=== PATIENT | male | born 1950 | race Two or more races ===

== ENCOUNTER → 2024-02-04 | Outpatient (CLI) | payer OTHER, MEDICAID, SELFPAY ==
[2024-02-04 09:06] LABS: Collection Type, Urine Clean Catch
[2024-02-04 09:26] LABS: Basophils % (Auto) 0 % (0-2.5); Eosinophils # (Auto) 0.1 Thou/mm3 (0.0-0.5); Eosinophils % (Auto) 1 % (0-10); Hematocrit 45.6 % (41.0-53.0); Hemoglobin 15.1 g/dL (13.5-16.0); Immature Granulocytes % (Auto) 0 % (0-0); Immature Granulocytes Auto 0.02 Thou/mm3 (0.00-0.00); Lymphocytes # (Auto) 2.6 Thou/mm3 (1.0-4.8); Lymphocytes % (Auto) 45 % (10-50); Mean Corpuscular HGB Conc 33.1 g/dl (31.0-37.0); Mean Corpuscular Hemoglobin 31.7 pg (25.0-35.0); Mean Corpuscular Volume 96 fL (80-100); Monocytes # (Auto) 0.5 Thou/mm3 (0.0-0.8); Monocytes % (Auto) 8 % (0-12); Neutrophils # (Auto) 2.7 Thou/mm3 (1.8-7.7); Neutrophils % (Auto) 45 % (37-80); Nucleated Red Blood Cell % 0 /100 WBC (0); Platelet Count 145 Thou/mm3 (140-440); Red Blood Count 4.76 Miln/mm3 (4.50-5.90); White Blood Count 5.9 Thou/mm3 (3.8-10.6)
[2024-02-04 09:36] LABS: Bilirubin,Urine Negative (Negative); Blood,Urine 1+ (Negative); Clarity,Urine Clear (Clear/Hazy); Color,Urine Yellow (Lt Yel-Yel); Glucose, Urine Negative (Negative); Hyaline Casts,Urine 1 /hpf (0-1); Ketones,Urine Negative (Negative); Leukocyte Esterase,Urine Negative (Negative); Nitrite,Urine Negative (Negative); PH,Urine 5.5 (5.0-7.0); Protein,Urine Negative (Neg - Trace); RBC,Urine 2 /hpf (0-3); Specific Gravity,Urine 1.018 (1.001-1.035); Squamous Epithelial Cell,Urine < 1 /hpf (0-5); Urobilinogen,Urine Negative mg/dL (0.0-1.0); WBC,Urine 1 /hpf (0-5)
[2024-02-04 09:45] LABS: Alanine Aminotransferase 25 U/L (10-49); Albumin, Serum 4.9 gm/dL (3.4-4.8); Albumin/Globulin Ratio 1.7 (1.2-2.2); Alkaline Phosphatase 74 U/L (46-116); Anion Gap 9 (7-16); Aspartate Amino Transferase 30 U/L (0-34); BUN/Creatinine Ratio 13 Ratio (12-20); Bilirubin,Total 1.6 mg/dL (0.3-1.2); Blood Urea Nitrogen 20 mg/dL (9-23); Calcium 9.8 mg/dL (8.3-10.6); Calcium (Corrected) 9.8 mg/dL (8.5-10.1); Carbon Dioxide 30.6 mMol/L (20.0-31.0); Cardiac Risk Estimate 2.6 RATIO (4.0-6.7); Chloride 100 mMol/L (98-107); Cholesterol 168 mg/dL (132-200); Creatinine (Component) 1.5 mg/dL (0.6-1.3); Free T4 (Free Thyroxine) 1.15 ng/dL (0.89-1.76); Globulin 2.9 gm/dL (2.3-3.5); Glucose 103 mg/dL (74-106); HDL Cholesterol 64 mg/dL (40-60); LDL Cholesterol,Calculated 80 mg/dL (0-130); Osmolality,Calculated 282 (275-295); Potassium 3.7 mMol/L (3.4-5.1); Sodium 140 mMol/L (136-145); Thyroid Stimulating Hormone 7.91 uIU/mL (0.55-4.78); Total Protein 7.8 gm/dL (5.7-8.2); Triglycerides 118 mg/dL (30-150); eGFR 48 See Note
== END | disposition home or self-care (01) ==
LOC: COPL 08:22
PROVIDERS: PCP Family Medicine; Referring Provider Family Medicine; Visit Provider Family Medicine
DX: D64.9 Anemia, unspecified (principal); E78.2 Mixed hyperlipidemia; I10 Essential (primary) hypertension; R94.6 Abnormal results of thyroid function studies; R31.21 Asymptomatic microscopic hematuria; I48.20 Chronic atrial fibrillation, unspecified
CPT/HCPCS: 36415; 80053; 80061; 81001; 84439; 84443; 85025

== ENCOUNTER → 2024-02-15 | Outpatient (CLI) | payer OTHER, MEDICAID, SELFPAY ==
--- NOTE | 2024-02-15 12:00 | XR_ITS ---
Examination: MRI brain without intravenous contrast. Date and time of exam: February 15, 2024 1226 hours INDICATIONS: CVA history 2021, right-sided weakness and difficulty speaking 2 years, brain hemorrhage 11/06/2023 Technique: Multiple axial and sagittal images of the brain obtained. Siemens high-resolution 1.5 Adriana short bore scanners utilized. Sagittal sections, T1-weighted, TR 500, TE 14, are performed. Axial sections proton-density and T2-weighted have been obtained. Inversion recovery axial images, TR 9, 260, TE 111, TI 2500. Diffusion weighted images, axial sections, TR 4800, TE 128, B value 1000 Axial sections, ADC map, TR 4800, TE 128 Findings: Enlargement of the sella turcica is not present. The optic chiasm and infundibular are not remarkable. Prepontine and interpeduncular cisterns are not enlarged. There is no localized enlargement of the medulla or oniel. Fourth ventricle and cerebellar tonsils appear normal in position. Encephalomalacia left posterior parietal occipital lobe No subacute area of hemorrhage density is seen. Mass in the cerebellopontine angle region is not evident. Globes symmetrical. Orbital musculature including medial lateral rectus muscles do not exhibit abnormality. Diffusion-weighted images demonstrate no focus of restricted diffusion. Increased white matter signal prominent Mass effect upon the ventricular system is not identified. Impression: Negative for acute hemorrhage mass effect or midline shift No acute infarct Old infarct as above
--- NOTE | 2024-02-15 13:09 | XR_ITS ---
Examination: CT brain head without contrast. 2-D sagittal coronal reconstructions Date and time of exam:February 15, 2024 1316 hours Comparison 11/06/2023 INDICATIONS: CVA history 2021 right sided body weakness difficulty speaking 2 years, large hemorrhage 4.1 x 2.5 cm posterior left parietal lobe occipital lobe on CT brain scan 11/06/2023 CTDI: vol (mGy):51.2 DLP: (mGycm):1157 Technique: Multiple CT axial sections of the brain have been obtained, 5 mm slice thickness. Contrast has not been administered. 2-D sagittal, coronal reconstructions have been obtained Low dose protocols were performed. One or more of the following dose reduction techniques were used; automated exposure control, adjustment of the mA and/or KV according to patient size, use of iterative reconstruction technique. Findings: No significant ventricular enlargement. There is subtle hyperdensity in the infarct in the left posterior parietal occipital lobe on the current study, although less intense compared to the November 06, 2023 exam No interval significant mass effect No midline shift IMPRESSION: Decrease in but residual hemorrhage at the site of the hemorrhagic infarct left posterior parietal left occipital noted on the November 06, 2023 exam
== END | disposition home or self-care (01) ==
PROVIDERS: PCP Family Medicine; Referring Provider Psychiatry & Neurology Neurology; Visit Provider Psychiatry & Neurology Neurology
DX: I62.9 Nontraumatic intracranial hemorrhage, unspecified (principal); Z86.73 Personal history of transient ischemic attack (TIA), and cerebral infarction without residual deficits
CPT/HCPCS: 70450; 70551

== ENCOUNTER → 2024-06-16 | Outpatient (CLI) | payer MEDICARE, MEDICAID, SELFPAY ==
[2024-06-16 09:03] LABS: Collection Type, Urine Clean Catch
[2024-06-16 09:25] LABS: Basophils % (Auto) 1 % (0-2.5); Eosinophils # (Auto) 0.1 Thou/mm3 (0.0-0.5); Eosinophils % (Auto) 1 % (0-10); Hematocrit 42.7 % (41.0-53.0); Hemoglobin 14.4 g/dL (13.5-16.0); Immature Granulocytes % (Auto) 0 % (0-0); Immature Granulocytes Auto 0.01 Thou/mm3 (0.00-0.00); Lymphocytes # (Auto) 2.1 Thou/mm3 (1.0-4.8); Lymphocytes % (Auto) 39 % (10-50); Mean Corpuscular HGB Conc 33.7 g/dl (31.0-37.0); Mean Corpuscular Volume 101 fL (80-100); Monocytes # (Auto) 0.4 Thou/mm3 (0.0-0.8); Monocytes % (Auto) 8 % (0-12); Neutrophils # (Auto) 2.7 Thou/mm3 (1.8-7.7); Neutrophils % (Auto) 52 % (37-80); Nucleated Red Blood Cell % 0 /100 WBC (0); Platelet Count 157 Thou/mm3 (140-440); RDW Standard Deviation 52.1 fL (35.1-43.9); Red Blood Count 4.23 Miln/mm3 (4.50-5.90); White Blood Count 5.3 Thou/mm3 (3.8-10.6)
[2024-06-16 09:57] LABS: Alanine Aminotransferase 27 U/L (10-49); Albumin, Serum 4.5 gm/dL (3.4-4.8); Albumin/Globulin Ratio 1.6 (1.2-2.2); Alkaline Phosphatase 72 U/L (46-116); Anion Gap 6 (7-16); Aspartate Amino Transferase 31 U/L (0-34); BUN/Creatinine Ratio 15 Ratio (12-20); Bilirubin,Total 1.8 mg/dL (0.3-1.2); Blood Urea Nitrogen 23 mg/dL (9-23); Calcium 9.5 mg/dL (8.3-10.6); Calcium (Corrected) 9.5 mg/dL (8.5-10.1); Carbon Dioxide 28.6 mMol/L (20.0-31.0); Cardiac Risk Estimate 2.9 RATIO (4.0-6.7); Chloride 107 mMol/L (98-107); Cholesterol 140 mg/dL (132-200); Creatinine (Component) 1.5 mg/dL (0.6-1.3); Globulin 2.9 gm/dL (2.3-3.5); Glucose 105 mg/dL (74-106); HDL Cholesterol 48 mg/dL (40-60); LDL Cholesterol,Calculated 69 mg/dL (0-130); Osmolality,Calculated 286 (275-295); Potassium 3.6 mMol/L (3.4-5.1); Sodium 142 mMol/L (136-145); Thyroid Stimulating Hormone 8.09 uIU/mL (0.55-4.78); Total Protein 7.4 gm/dL (5.7-8.2); Triglycerides 114 mg/dL (30-150); eGFR 48 See Note
[2024-06-16 10:34] LABS: Bilirubin,Urine Negative (Negative); Blood,Urine Negative (Negative); Clarity,Urine Clear (Clear/Hazy); Color,Urine Lt-Yellow (Lt Yel-Yel); Glucose, Urine Negative (Negative); Ketones,Urine Negative (Negative); Leukocyte Esterase,Urine Negative (Negative); Nitrite,Urine Negative (Negative); Protein,Urine Negative (Neg - Trace); RBC,Urine 1 /hpf (0-3); Specific Gravity,Urine 1.015 (1.001-1.035); Squamous Epithelial Cell,Urine < 1 /hpf (0-5); Urobilinogen,Urine Negative mg/dL (0.0-1.0); WBC,Urine < 1 /hpf (0-5)
== END | disposition home or self-care (01) ==
PROVIDERS: PCP Family Medicine; Referring Provider Family Medicine; Visit Provider Family Medicine
DX: Z00.00 Encounter for general adult medical examination without abnormal findings (principal); E03.9 Hypothyroidism, unspecified; E78.2 Mixed hyperlipidemia; I10 Essential (primary) hypertension
CPT/HCPCS: 36415; 80053; 80061; 81001; 84443; 85025

== ENCOUNTER → 2024-08-19 | Outpatient (CLI) | payer MEDICARE, MEDICAID, SELFPAY ==
--- NOTE | 2024-08-19 13:40 | XR_ITS ---
Examination: Bone densitometry Date and time of exam:August 19, 2024, 1345 hours INDICATIONS: 74-year-old male with diagnosis age related osteoporosis Technique: Lumbar spine and hip total bone mineralization values of an calculated. Peak reference and age match control results have been displayed. Findings: Lumbar spine total bone mineralization is1.555 gm/cm2. This is 4.2 standard deviations above peak reference. This is 5.3 standard deviations above age-matched controls. Hip total bone mineralization is 1.062 gm/cm2 This is 0.1 standard deviations above peak reference. This is 0.9 standard deviations above age-matched controls Impression: There is normal mineralization based on lumbar spine measurements. There is osteopenia based on hip measurements
== END | disposition home or self-care (01) ==
LOC: CDIM 13:14
PROVIDERS: Referring Provider Family Medicine; Visit Provider Family Medicine
DX: M85.88 Other specified disorders of bone density and structure, other site (principal)
CPT/HCPCS: 77080

== ENCOUNTER → 2024-11-03 | Outpatient (CLI) | payer MEDICARE, MEDICAID, SELFPAY ==
[2024-11-03 11:27] LABS: Anion Gap 11 (7-16); BUN/Creatinine Ratio 14 Ratio (12-20); Blood Urea Nitrogen 20 mg/dL (9-23); Carbon Dioxide 28.3 mMol/L (20.0-31.0); Chloride 104 mMol/L (98-107); Creatinine (Component) 1.4 mg/dL (0.6-1.3); Potassium 4.3 mMol/L (3.4-5.1); Sodium 143 mMol/L (136-145)
[2024-11-03 11:28] LABS: Alanine Aminotransferase 31 U/L (10-49); Albumin, Serum 4.4 gm/dL (3.4-4.8); Albumin/Globulin Ratio 1.7 (1.2-2.2); Alkaline Phosphatase 61 U/L (46-116); Aspartate Amino Transferase 35 U/L (0-34); Bilirubin,Total 1.5 mg/dL (0.3-1.2); Calcium 9.4 mg/dL (8.3-10.6); Calcium (Corrected) 9.4 mg/dL (8.5-10.1); Cardiac Risk Estimate 2.5 RATIO (4.0-6.7); Cholesterol 127 mg/dL (132-200); Globulin 2.6 gm/dL (2.3-3.5); Glucose 97 mg/dL (74-106); HDL Cholesterol 50 mg/dL (40-60); LDL Cholesterol,Calculated 56 mg/dL (0-130); Osmolality,Calculated 287 (275-295); Thyroid Stimulating Hormone 3.23 uIU/mL (0.55-4.78); Total Protein 7.0 gm/dL (5.7-8.2); Triglycerides 103 mg/dL (30-150); eGFR 52 See Note
== END | disposition home or self-care (01) ==
LOC: COPL 09:16
PROVIDERS: PCP Family Medicine; Referring Provider Family Medicine; Visit Provider Internal Medicine
DX: E03.9 Hypothyroidism, unspecified (principal); E78.2 Mixed hyperlipidemia; I13.0 Hypertensive heart and chronic kidney disease with heart failure and stage 1 through stage 4 chronic kidney disease, or unspecified chronic kidney disease; N18.31 Chronic kidney disease, stage 3a; I50.9 Heart failure, unspecified; M06.9 Rheumatoid arthritis, unspecified
CPT/HCPCS: 36415; 80053; 80061; 84443

== ENCOUNTER → 2025-01-26 | Outpatient (CLI) | payer MEDICARE, MEDICAID, SELFPAY ==
[2025-01-26 10:45] LABS: Alanine Aminotransferase 148 U/L (10-49); Albumin, Serum 4.8 gm/dL (3.4-4.8); Albumin/Globulin Ratio 1.7 (1.2-2.2); Alkaline Phosphatase 60 U/L (46-116); Anion Gap 9 (7-16); Aspartate Amino Transferase 105 U/L (0-34); BUN/Creatinine Ratio 12 Ratio (12-20); Bilirubin,Total 1.9 mg/dL (0.3-1.2); Blood Urea Nitrogen 18 mg/dL (9-23); Calcium 9.7 mg/dL (8.3-10.6); Calcium (Corrected) 9.7 mg/dL (8.5-10.1); Carbon Dioxide 31.0 mMol/L (20.0-31.0); Chloride 104 mMol/L (98-107); Creatinine (Component) 1.5 mg/dL (0.6-1.3); Globulin 2.9 gm/dL (2.3-3.5); Glucose 108 mg/dL (74-106); Osmolality,Calculated 289 (275-295); Potassium 4.0 mMol/L (3.4-5.1); Sodium 144 mMol/L (136-145); Thyroid Stimulating Hormone 4.73 uIU/mL (0.55-4.78); Total Protein 7.7 gm/dL (5.7-8.2); eGFR 48 See Note
== END | disposition home or self-care (01) ==
PROVIDERS: PCP Family Medicine; Referring Provider Family Medicine; Visit Provider Family Medicine
DX: N18.31 Chronic kidney disease, stage 3a (principal); E78.2 Mixed hyperlipidemia; E03.9 Hypothyroidism, unspecified
CPT/HCPCS: 36415; 80053; 84443

== ENCOUNTER → 2025-02-05 | Outpatient (CLI) | payer MEDICARE, MEDICAID, SELFPAY ==
[2025-02-05 11:41] LABS: B-Type Natriuretic Peptide 148 pg/mL (0-100)
[2025-02-05 15:40] LABS: Hepatitis A Antibody IgM Non Reactive (Non React); Hepatitis B Core Antibody IgM Non Reactive (Non React); Hepatitis B Surface Antigen Non Reactive (Non React); Hepatitis C Antibody Non Reactive (Non React)
== END | disposition home or self-care (01) ==
LOC: COPL 10:08
PROVIDERS: PCP Family Medicine; Referring Provider Internal Medicine; Visit Provider Internal Medicine
DX: R94.5 Abnormal results of liver function studies (principal); I50.9 Heart failure, unspecified
CPT/HCPCS: 36415; 80074; 83880

== ENCOUNTER 2025-02-12 13:12 | Emergency (ER) | payer MEDICARE, MEDICAID, SELFPAY ==
--- NOTE | 2025-02-12 13:13 | XR_ITS ---
EXAMINATION: AP chest single view TECHNIQUE: AP portable upright chest single view Date and time: February 12, 2025, 1407 hours, comparison 11/06/2023 INDICATIONS: Stroke alert today FINDINGS: Atelectasis and/or pneumonia left base Normal heart size Prominent osteopenia IMPRESSION: Atelectasis and/or mild pneumonia left base, clinical correlation advised
--- NOTE | 2025-02-12 13:13 | EKG_ITS ---
[facility] (Formerly [facility]) Test Date: 2025-02-12 Pat Name: ROSS STRICKLAND Department: Room: - Gender: Male Senior Compensation Analyst: : 1950 Requested By: Anita Gray Order Number: [id number] Reading MD: Anita Gray Measurements Intervals [place] Rate: 90 P: [place]: QRS: 58 QRSD: 130 T: 31 QT: 370 QTc: 454 Interpretive Statements ATRIAL FIBRILLATION MODERATE INTRAVENTRICULAR CONDUCTION DELAY [110+ ms QRS DURATION] ABNORMAL RHYTHM ECG Compared to ECG 01/04/2024 18:31:37 Intraventricular conduction delay now present ST (T wave) deviation no longer present /store/S0/[id number]/ecg/[id number].pdf
--- NOTE | 2025-02-12 13:13 | XR_ITS ---
Examination: CT brain head without contrast. 2-D sagittal coronal reconstructions Date and time of exam: February 12, 2025, 1329 hours INDICATIONS: Stroke alert, onset right-sided body deficit altered mental status focal neurologic deficit beginning 1 hour ago, comparison February 15, 2024, history hemorrhagic stroke left posterior parietal left occipital lobe November 06, 2023 CTDI: vol (mGy): 54.7 DLP: (mGycm): 1267 Technique: Multiple CT axial sections of the brain have been obtained, 5 mm slice thickness. Contrast has not been administered. 2-D sagittal, coronal reconstructions have been obtained Low dose protocols were performed. One or more of the following dose reduction techniques were used; automated exposure control, adjustment of the mA and/or KV according to patient size, use of iterative reconstruction technique. Findings: No significant ventricular enlargement. Low-density left occipital lobe with small areas of hemorrhage, axial images 21,23 and 24 Intra-axial or extra-axial hemorrhage density is not seen. No mass effect or midline shift Basal cisterns are not remarkable. Fourth ventricle is midline. Cranial vault intact. Impression: Mild hyperdensity left posterior parietal occipital lobe consistent with hemorrhage
--- NOTE | 2025-02-12 13:13 | XR_ITS ---
Examination: CTA carotids with intravenous contrast CTA brain, head with intravenous contrast. 2-D sagittal, coronal reconstructions. 3-D reconstructions. Exam date and time: February 12, 2025, 1347 hours INDICATIONS: Stroke alert, onset focal neurologic deficit altered mental status right-sided body deficit beginning 1 hour ago CTDI: vol (mGy) 29.8 DLP: (mGycm) 500 Technique: Multiple CTA axial brain, head carotid images post intravenous contrast injection 75 cc, [id number]. 2-D sagittal, coronal reconstructions. 3-D reconstructions, 3-D post processing including vascular maximum intensity projection images. Low dose protocols were performed. One or more of the following dose reduction techniques were used; automated exposure control, adjustment of the mA and/or KV according to patient size, use of iterative reconstruction technique. Findings: No significant common carotid carotid bifurcation or internal carotid artery stenoses Dominant left vertebral artery in the neck. Intracranial vertebral arteries basilar artery posterior cerebral branches fill with no large vessel occlusions Petrous juxtasellar supraclinoid portions internal carotid arteries intact M1 segments middle cerebral arteries middle cerebral artery trifurcation vessels anterior cerebral arteries demonstrate no large vessel occlusions IMPRESSION: No significant neck arterial stenoses No cerebral large vessel arterial occlusions or thrombus
--- NOTE | 2025-02-12 13:15 | PD.EDAMS ---
Altered Mental Status RME/HPI General Chief Complaint: Neuro Symptoms/Deficit Stated Complaint: STROKE Time Seen by Provider: 02/12/25 13:13 Arrival date/time: 02/12/25 13:12 74-year-old male patient with significant history of hemorrhagic stroke in the left parieto-occipital region hypertension, chronic A-fib, was brought in by EMS for strokelike symptoms. Patient apparently was outside working in the yard, went inside and was noted to have sudden onset of tonic-clonic seizure lasting for 10 minutes, and later on noted to have started with speech and confusion. He was noted to have forced right gaze deviation with minimal movement of the right arm and leg. Patient was also noted to be combative. There was no trauma involved during the incident since patient was sitting on a chair. Last well-known time 20 minutes ago. . Patient is currently taking Xarelto, patient took the dose of Xarelto this morning. Related Data Home Medications ?Medication ?Instructions ?Recorded ?Confirmed atorvastatin 20 mg tablet 20 mg PO QPM 01/06/24 01/06/24 calcium 600 mg (as 1 tab PO BID 01/06/24 01/06/24 carbonate)-vitamin D3 10 mcg (400 unit) tablet folic acid 1 mg tablet 1 mg PO QDAY 01/06/24 01/06/24 levothyroxine 25 mcg tablet 25 mcg PO QDAY 01/06/24 01/06/24 Allergies Allergy/AdvReac Type Severity Reaction Status Date / Time No Known Allergies Allergy Verified 01/04/24 17:32 Review of Systems Review of Systems Narrative Review of Systems: Review of system reviewed and within normal limits except mentioned in HPI ED Exam Narrative Physical exam: VITAL SIGNS: Reviewed. GENERAL APPEARANCE: Alert but confused, does not, follows commands, no acute distress, HEAD AND FACE: Non-traumatic. ENT: PERRL, pink conjunctivitis, eyelid no trauma, Mucous membrane moist. NECK: Supple, nontender, no nuchal rigidity. CHEST: No tenderness, no crepitus, no paradoxical movement, no retractions. LUNGS: Clear, well ventilated, symmetric, no rales, no wheezing, no ronchi, no stridor, good breath sounds bilaterally. HEART: Regular rate, regular rhythm, no murmur, no gallops. ABDOMEN: Soft, positive bowel sounds, nondistended, no guarding, nontender, no rebound, no masses, RECTAL: Deferred. GENITAL: Deferred. NEUROLOGICAL: Gross motor function intact sensory function intact, Appropriate for age. MUSCULOSKELETAL: low back nontender, full range of motion. EXTREMITIES: Nontender, full range of motion. SKIN: Color pink, dry, no rash, no lacerations, no abrasions, no contusions. LYMPHATICS: Deferred. Course Quality Measures none Orders Category Date Time Status Bedside Blood Glucose NOW Care 02/12/25 13:13 Completed Talend Developer NOW Care 02/12/25 13:13 Completed Continuous Pulse Oximetry NOW Care 02/12/25 13:13 Completed EKG (ED ONLY) *Do not use* NOW Care 02/12/25 13:13 Completed Wolfe [Urinary Catheter] QS Care 02/12/25 14:34 Completed Wolfe to [place]kiff Routine Care 02/12/25 14:27 Ordered In and Out Catheter NEEDED Care 02/12/25 13:13 Completed Insert IV NOW Care 02/12/25 13:13 Completed NIH Stroke Scale now Care 02/12/25 13:13 Completed NPO NOW Care 02/12/25 13:13 Completed Nurse Swallow Screen x1 Care 02/12/25 13:13 Completed Consult to Neurology / Tele-Neurology Routine Cons 02/12/25 13:13 Active Transfer to another facility [Transfer/Discharge] Stat Discharge 02/12/25 14:[address] angio stroke protocol Stat Exams 02/12/25 13:[address] stroke protocol Stat Exams 02/12/25 13:13 Completed EKG (ED Only) Stat Exams 02/12/25 13:13 Draft XR chest 1V portable Stat Exams 02/12/25 13:13 Completed CBC Stat Lab 02/12/25 13:40 Completed Comprehensive Metabolic Panel Stat Lab 02/12/25 13:40 Completed Drug Screen,Urine Stat Lab 02/12/25 14:33 Completed Magnesium Stat Lab 02/12/25 13:40 Completed Partial Thromboplastin Time Stat Lab 02/12/25 13:40 Completed Prothrombin Time with INR Stat Lab 02/12/25 13:40 Completed Troponin I Stat Lab 02/12/25 13:40 Completed Urinalysis, C/S if Indicated Stat Lab 02/12/25 14:33 Completed LORazepam [Ativan Inj] Med 02/12/25 13:23 Discontinued 2 mg IM X1 ONE Labetalol* IV [Trandate IV] Med 02/12/25 13:13 Discontinued 10 mg IVP Q15M PRN Ondansetron Inj [Zofran Inj] Med 02/12/25 13:13 Discontinued 4 mg IVP Q4HR PRN Prothrombin Complex Concent [Kcentra IV] 2,000 unit Med 02/12/25 14:57 Discontinued Sterile Water 100 ml Container,Empty 150 ml [Empty Container Bag 150 ml] 1 bag IV X1 Sodium Chloride 0.9% [Ns] 80 ml Med 02/12/25 14:15 Discontinued levETIRAcetam INJ [Keppra Inj] 4,500 mg IV 250 mls/hr Oxygen Delivery NOW RT 02/12/25 13:13 Completed Vital Signs Vital signs: Vital Signs Temperature 98.1 F 02/12/25 14:04 Pulse Rate 91 02/12/25 14:04 Respiratory Rate 20 02/12/25 14:04 Blood Pressure 133/80 H 02/12/25 14:04 Pulse Oximetry (%) 96 02/12/25 14:04 Oxygen Delivery Method Nasal Cannula 02/12/25 14:04 Oxygen Flow Rate 6 02/12/25 14:04 Altered Mental Status MDM Narrative MDM Narrative:: 02/12/25 13:12 74-year-old male patient with significant history of hemorrhagic stroke in the left parieto-occipital region hypertension, chronic A-fib, was brought in by EMS for strokelike symptoms. Patient apparently was outside working in the yard, went inside and was noted to have sudden onset of tonic-clonic seizure lasting for 10 minutes, and later on noted to have started with speech and confusion. He was noted to have forced right gaze deviation with minimal movement of the right arm and leg. Patient was also noted to be combative. There was no trauma involved during the incident since patient was sitting on a chair. Last well-known time 20 minutes ago. . Patient is currently taking Xarelto, patient took the dose of Xarelto this morning. Stroke alert was initiated right away I spoke with teleneurologist, who recommends transfer for continuous EEG monitoring, and neuro surgery consult. Patient was loaded with Keppra, 4.5 g IV was also given Ativan 2 mg IV. Plan of care discussed with the family who agrees with transfer. 2:40 PM spoke with CAROL ANGELA in [facility], and according to him he accepted the patient pending approval from neurosurgeon 3:50 PM spoke with neurosurgeon, from [facility], who accepted the transfer. He recommends giving Kcentra. Patient data External records reviewed:: None Clinical information provided by:: family Social determinants that could affect healthcare access:: none Patient has the following chronic illnesses:: History of hemorrhagic stroke in the past, chronic A-fib hypertension on Xarelto How is presenting disease/condition affected by chronic disease/condition?: exacerbated by Evaluation data The following diagnostics were reviewed and interpreted by me:: lab results, radiology exam(s) and EKG tracing(s) Lab and/or radiology exams considered but not ordered:: None Interpretation Summary: See above Medications / Prescriptions Medications or Prescriptions considered but not ordered:: None Medication administrations:: Medication Administration History Discontinued Medications Levetiracetam 4,500 mg/ Sodium (Chloride) 125 mls @ 250 mls/hr IV .Q30M ONE Stop: 02/12/25 14:44 Last Infusion: 02/12/25 14:57 Dose: Infused Documented By: Admin: 02/12/25 14:23 Dose: 250 mls/hr Documented By: GM Prothrombin Complex Concent ( Human) 2,000 unit/ Sterile Water 100 ml/ IV Miscellaneous Supplies 100 mls @ 400 mls/hr IV X1 ONE Stop: 02/12/25 15:11 Last Infusion: 02/12/25 15:16 Dose: 0 mls/hr Documented By: Admin: 02/12/25 15:15 Dose: 400 mls/hr Documented By: SAIMA Labetalol HCl (Labetalol Inj 5 Mg/Ml Vial 4 Ml) 10 mg IVP Q15M PRN PRN Reason: hypertension Lorazepam (Lorazepam 2 Mg/Ml Vial) 2 mg IM X1 ONE Stop: 02/12/25 13:24 Last Admin: 02/12/25 13:34 Dose: 2 mg Documented By: AA Ondansetron HCl (Ondansetron Inj 2 Mg/Ml Inj 2 Ml) 4 mg IVP Q4HR PRN PRN Reason: NAUSEA OR VOMITING Stop: 03/14/25 13:12 She will Consultations Consultation(s) initiated? (list below): Yes Consultation #1 (Physician, Specialty, Details): Neurosurgeon from [facility] Diagnosis Differential diagnosis altered mental status: altered mental status and subarachnoid hemorrhage Most likely diagnosis given after review of the tests above:: Hemorrhagic stroke Admission Indicated Admission indicated?: indicated Explain why admission is indicated or not indicated:: Patient transferred to higher level care Admission Request Was there a request for admission?: No Disposition Plan Disposition Plan: Transfer Critical Care Time Critical Care Time Critical Care Time: Yes Total Critical Care Time (min.): 45 Attestation: Critical Care Time The very real possibility of a deterioration of this patient's condition required the highest level of my preparedness for sudden, emergent intervention for the following systems: Cardiac and Metabolic. I provided critical care services, which included medication orders, frequent re-evaluations of the patient's condition and response to treatment, ordering and reviewing test results, and discussing the case with various consultants including: nursing staff, hospitalist, and more. The critical care time associated with the care of this patient was 45 minutes. Discharge Plan Plan Patient Disposition: [facility] Facility Pt Being Transferred to: [facility] Service Needed for Transfer: Neurosurgery Prescriptions/Referrals Prescriptions/Med Rec: No Action atorvastatin 20 mg tablet 20 mg PO QPM levothyroxine 25 mcg tablet 25 mcg PO QDAY folic acid 1 mg tablet 1 mg PO QDAY Patient Comments: TOME 1 TABLETA POR V A ORAL TODOS LOS D calcium carbonate-vitamin D3 600 mg-10 mcg (400 unit) Tablet 1 tab PO BID Problem List Clinical Impression: Hemorrhagic stroke Patient/Caregiver Discharge Instructions Print Language: Mongolian Stand Alone Forms: Gila Award Info., Patient Portal Info Letter
[2025-02-12] MEDS: LORazepam 2 MG/ML VIAL IM (13:34)
--- NOTE | 2025-02-12 13:40 | PC.NURSE ---
PER DR. DELGADO, PT NOT A CANDIDATE FOR [facility] AT THIS TIME.
[2025-02-12 13:56] LABS: Basophils # (Auto) 0.0 Thou/mm3 (0.0-0.2); Basophils % (Auto) 0 % (0-2.5); Eosinophils # (Auto) 0.0 Thou/mm3 (0.0-0.5); Eosinophils % (Auto) 1 % (0-10); Hematocrit 42.5 % (41.0-53.0); Hemoglobin 15.1 g/dL (13.5-16.0); Immature Granulocytes Auto 0.02 Thou/mm3 (0.00-0.00); Lymphocytes # (Auto) 1.9 Thou/mm3 (1.0-4.8); Lymphocytes % (Auto) 34 % (10-50); Mean Corpuscular HGB Conc 35.5 g/dl (31.0-37.0); Mean Corpuscular Hemoglobin 35.4 pg (25.0-35.0); Mean Corpuscular Volume 100 fL (80-100); Monocytes # (Auto) 0.3 Thou/mm3 (0.0-0.8); Monocytes % (Auto) 6 % (0-12); Neutrophils # (Auto) 3.3 Thou/mm3 (1.8-7.7); Neutrophils % (Auto) 59 % (37-80); Nucleated Red Blood Cell # 0.00 Thou/mm3 (0.00-0.00); Nucleated Red Blood Cell % 0 /100 WBC (0); Platelet Count 163 Thou/mm3 (140-440); RDW Standard Deviation 51.2 fL (35.1-43.9); Red Blood Count 4.27 Miln/mm3 (4.50-5.90); White Blood Count 5.5 Thou/mm3 (3.8-10.6)
[2025-02-12 14:04] VITALS: BP 133/80; PULSE 88; PULSE 91; RESP 13; RESP 20; RESP 89; TEMP 36.7; O2SAT 96; BMI 27.4
[2025-02-12 14:07] LABS: INR 1.2 (0.9-1.3); Partial Thromboplastin Time 26.5 Seconds (22.0-36.0); Prothrombin Time 12.3 Seconds (9.0-12.2)
[2025-02-12 14:11] LABS: Alanine Aminotransferase 145 U/L (10-49); Albumin, Serum 4.7 gm/dL (3.4-4.8); Albumin/Globulin Ratio 1.6 (1.2-2.2); Alkaline Phosphatase 64 U/L (46-116); Anion Gap 15 (7-16); Aspartate Amino Transferase 93 U/L (0-34); BUN/Creatinine Ratio 14 Ratio (12-20); Bilirubin,Total 1.7 mg/dL (0.3-1.2); Blood Urea Nitrogen 22 mg/dL (9-23); Calcium 9.2 mg/dL (8.3-10.6); Calcium (Corrected) 9.2 mg/dL (8.5-10.1); Carbon Dioxide 22.8 mMol/L (20.0-31.0); Chloride 103 mMol/L (98-107); Creatinine (Component) 1.6 mg/dL (0.6-1.3); Globulin 3.0 gm/dL (2.3-3.5); Glucose 138 mg/dL (74-106); Magnesium 2.1 mg/dL (1.6-2.6); Osmolality,Calculated 286 (275-295); Potassium 3.5 mMol/L (3.4-5.1); Sodium 141 mMol/L (136-145); Total Protein 7.7 gm/dL (5.7-8.2); Troponin I < 0.020 ng/mL (0.0-0.045); eGFR 44 See Note
--- NOTE | 2025-02-12 14:13 | ESCONSULT_ITS ---
Tele Neuro Consultation Consultation Date 02/12/25 Laboratory-Coagulation Panel PT 12.3 Seconds (9.0-12.2) H 02/12/25 13:40 INR 1.2 (0.9-1.3) 02/12/25 13:40 APTT 26.5 Seconds (22.0-36.0) 02/12/25 13:40 Consultation Narrative [facility] TeleNeurology Consult Services Patient Name:???Shubham Clemons Date of :???1950 Identification Number:??? 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 Last normal at approximately 12:40 PM. On arrival to the emergency department, he was heavily combative and swatting away the care team with his left arm and leg. He was not speaking or following any commands. He did have a forced right gaze deviation with minimal movement of the right arm and leg. Patient was not allowing the team to get an IV. I recommended giving 2 mg Ativan stat prior to the scan due to concern for ongoing seizure activity and this was given IM. Despite ativan, still had issues getting patient to lie still for the [facility] which led to a delayed scan. ? ?CT head showing encephalomalacia in the left occipital region and some residual areas of hyperdensity that were also seen on the head CT in January 2024. Radiologist said consistent with hemorrhage but they do not specify whether they believe it is acute or just residual. I suspect it is likely residual. I spoke with the ED provider. He likely needs transfer for higher level of care. I explained my concern for ongoing focal status epilepticus given the history of left sided hemorrhage and forced right gaze deviation. I recommended loading with 60 mg/kg of Keppra with a max of 4.5 g and planning for stat continuous EEG monitoring. ?With the residual hemorrhage, recommend bringing his blood pressure less than 140/90 and obtaining additional imaging (MRI brain wo contrast). ? ?Recommendations: ?? Stat continuous EEG ?? Keppra 60 mg/kg load with a max of 4.5 g ?? Transfer for higher level of care (continuous EEG) and neurosurgery consultation given radiology read of hyperdensity within the prior area of bleeding ??If right gaze deviation persist despite the Keppra load, recommend giving an additional 2 mg of Ativan Our recommendations are outlined below. Recommendations: ? Stroke/Telemetry Floor ? Neuro Checks (Q2) ? Bedside Swallow Eval ? DVT Prophylaxis ? IV Fluids, Normal Saline ? Head of Bed 30 Degrees ? Euglycemia and Avoid Hyperthermia (PRN Acetaminophen) Sign Out: ? Discussed with Emergency Department Provider Advanced Imaging: CTA Head and Neck Completed. LVO:No Patient is not a candidate for NEELA Metrics: Last Known Well: 02/12/2025 12:40:00 Arrival Time: 02/12/2025 13:13:00 Activation Time: 02/12/2025 13:11:27 Initial Response Time: 02/12/2025 13:12:00 ETA Time reported by hospital: 2 Minutes.Symptoms: GTC seizure. Initial patient interaction: 02/12/2025 13:19:30 NIHSS Assessment Completed: 02/12/2025 13:27:51Patient is not a candidate for Thrombolytic. Thrombolytic Medical Decision: 02/12/2025 13:27:52Patient was not deemed candidate for Thrombolytic because of following reasons: History of previous intracranial hemorrhage, intracranial neoplasm . CT Head: I personally reviewed all the CT images that were available to me and it showed: Left occipital encephalomalacia with some residual blood products seen Primary Provider Notified of Diagnostic Impression and Management Plan on: 02/12/2025 13:42:45 History of Present Illness:Patient is a 74 year old Male. Patient was brought by EMS for symptoms of GTC seizure. Patient coming in from home via EMS with reports of a generalized tonic-clonic seizure. He was out gardening earlier today and said he was not feeling well when he came inside. Family then witnessed a generalized tonic-clonic seizure lasting a couple of minutes. When EMS arrived, he had slurred speech and he was intermittently gazing up into the right. He was not answering questions or following any commands. In review of his chart. He has a history of a hemorrhagic infarct in the left posterior parietal/left occipital region which originally occurred in October 2023. Family denied any history of seizures. Past Medical History: ?Hypertension ?Diabetes Mellitus ?Hyperlipidemia ?Stroke ?There is no history of Seizures Medications: No Anticoagulant use? No Antiplatelet use Reviewed EMR for current medications Allergies:? Reviewed Social History: Unable To Obtain Due To Patient Status :?Patient Cannot Communicate Relevant Social History Family History: There is no family history of premature cerebrovascular disease pertinent to this consultation ROS : 14 Points Review of Systems was performed and was negative except mentioned in HPI. Past Surgical History: There Is No Surgical History Contributory To Today?s Visit Examination: BP(140/82),?Pulse(90),?Blood Glucose(143) 1A: Level of Consciousness - Alert; keenly responsive?+ 0 1B: Ask Month and Age - Aphasic?+ 2 1C: Blink Eyes & Squeeze Hands - Performs 0 Tasks?+ 2 2: Test Horizontal Extraocular Movements - Forced Gaze Palsy: Cannot Be Overcome ?+ 2 3: Test Visual Massey - No Visual Loss?+ 0 4: Test Facial Palsy (Use Grimace if Obtunded) - Normal symmetry?+ 0 5A: Test Left Arm Motor Drift - No Drift for 10 Seconds?+ 0 5B: Test Right Arm Motor Drift - Some Effort Against [place]?+ 2 6A: Test Left Leg Motor Drift - No Drift for 5 Seconds?+ 0 6B: Test Right Leg Motor Drift - Some Effort Against [place]?+ 2 7: Test Limb Ataxia (FNF/Heel-Serra) - No Ataxia?+ 0 8: Test Sensation - Normal; No sensory loss?+ 0 9: Test Language/Aphasia - Severe Aphasia: Fragmentary Expression, Inference Needed, Cannot Identify Materials?+ 2 10: Test Dysarthria - Mute/Anarthric?+ 2 11: Test Extinction/Inattention - No abnormality?+ 0 NIHSS Score:?14 Pre-Morbid Modified Faulk Scale: 0 Points = No symptoms at all Spoke with :?Anita Gray This consult was conducted in real time using interactive audio and video technology. Patient was informed of the technology being used for this visit and agreed to proceed. Patient located in hospital and provider located at home/office setting. Patient is being evaluated for possible acute neurologic impairment and high probability of imminent or life-threatening deterioration. I spent total of 35 minutes providing care to this patient, including time for face to face visit v ia telemedicine, review of medical records, imaging studies and discussion of findings with providers, the patient and/or family. Dr Ariane Cornelius [facility] For Inpatient follow-up with [facility] physician please call [facility] at . As we are not an outpatient service for any post hospital discharge needs please contact the hospital for assistance. If you have any questions for the [facility] physicians or need to reconsult for clinical or diagnostic changes please contact us via [facility] at . Non-radiologist review of imaging performed to assist with emergent clinical decision-making. Remote physician workstations do not possess the same resolution, calibration, or diagnostic capabilities as hospital-based radiology reading stations, and formal radiologist read is necessary. Signature :Jonathan Cornelius
[2025-02-12 14:24] VITALS: BP 139/75; PULSE 91; RESP 12; TEMP 36.7; O2SAT 95
--- NOTE | 2025-02-12 14:31 | PC.CC ---
Addendum entered by Mendel Mcclure RN 02/12/25 17:03: 1514: called [facility] , spoke to Brandon, transport ETA provided. 1509: transfer packet w/ 1CD given to the ED CARYN Pelletier. [facility] at bedside 1504: called [facility], informed unit already on the way as [facility] set up earlier 1453: Carl w/ [facility] called back w/ Dr. Betancur (neuro) on the line for peer to peer w/ anita. Dr Betancur accepted pt for consult. Transfer packet w/ x1 CD created and [facility] packet created. Addendum entered by Mendel Mcclure RN 02/12/25 14:47: 1445: spoke to Anita, he stated to wait to hear from [facility] before reaching out to [facility]. 1441: Dr. Weinstein and Anita completed peer to peer. He accepted the patient however they are trying to get a hold of the neurosurgeon. Carl stated he will confirm who is reaching out to the neurosurgeon and will call me back. 1420: called [facility]a, carl transferred me to [facility] ED. ER nurse gathered all information. She put me on hold to get Dr. Weinstein on the line. on hold for aprox 15 min Original Note: received terrell from [facility] for a stat transfer for hemorrahgic stroke. called [facility], per Marlee depends on the need. they dont have interventional. while on the phone with [facility], received call from [facility]. I informed her i was on the line with [facility] she said to bypass them and go straight to [facility]
[2025-02-12 14:37] VITALS: BP 135/81; PULSE 84; RESP 20; O2SAT 95
--- NOTE | 2025-02-12 14:37 | PC.NURSE ---
PER LEXY EVENT DESIGNER, PT SBP TO STAY UNDER 140. LABETALOL ORDERS IN PLACE TO HELP KEEP PT'S BP DOWN IF SBP GOES HIGHER THAN 140.
--- NOTE | 2025-02-12 14:38 | PC.NURSE ---
PT'S DAUGHTER, NEFTALI DODGE, AT BEDSIDE AND REPORTS PT HAS CARDIAC HX OF HIS HEART RATE BEING LOW AND IS IN THE PROCESS OF POSSIBLY GETTING A PACEMAKER BUT PT HAS NO PACEMAKER AT THIS TIME. FAMILY DENIED PT BEING DIABETIC, BUT REPORTS PT DOES HAVE HIGH BP.
[2025-02-12 14:48] LABS: Collection Type, Urine Clean Catch
[2025-02-12 14:54] LABS: Bilirubin,Urine Negative (Negative); Blood,Urine Trace (Negative); Clarity,Urine Clear (Clear/Hazy); Color,Urine Yellow (Lt Yel-Yel); Culture Indicated,Urine Not Indicated; Glucose, Urine Negative (Negative); Hyaline Casts,Urine < 1 /hpf (0-1); Ketones,Urine Negative (Negative); Leukocyte Esterase,Urine Negative (Negative); Nitrite,Urine Negative (Negative); PH,Urine 6.0 (5.0-7.0); Protein,Urine 1+ (Neg - Trace); RBC,Urine 3 /hpf (0-3); Specific Gravity,Urine 1.019 (1.001-1.035); Squamous Epithelial Cell,Urine < 1 /hpf (0-5); Urobilinogen,Urine Negative mg/dL (0.0-1.0); WBC,Urine 1 /hpf (0-5)
[2025-02-12 14:55] LABS: Sperm,Urine Present
[2025-02-12 14:59] LABS: Amphetamine/Methamp Scrn,U Negative (Negative); Barbiturate Screen,Urine Negative (Negative); Benzodiazepines Screen,Urine Negative (Negative); Benzoylecgonine Screen, Ur Negative (Negative); Fentanyl Screen,Urine Negative (Negative); Opiate Screen,Urine Negative (Negative); THC Screen,Urine Negative (Negative)
[2025-02-12] MEDS: [UNRECOGNIZED DRUG - OTHER] IV (15:15)
[2025-02-12] MEDS: STERILE WATER IV (15:15)
[2025-02-12] MEDS: PROTHROMBIN COMPLEX CONCENT IV (15:15)
--- NOTE | 2025-02-12 15:20 | PC.NURSE ---
[facility] HERE, PT WAS PLACED ON THEIR MEDICAL BILLING AND CODING SPECIALIST AT THIS TIME.
--- NOTE | 2025-02-12 15:39 | PC.NURSE ---
REPORT GIVEN TO NIRANJAN LOVE FROM [facility]
--- NOTE | 2025-02-12 15:56 | PC.NURSE ---
SBAR REPORT GIVEN TO YESSY LOVE FROM [facility] VIA PHONE CALL.
[2025-02-12 15:58] VITALS: BP 127/86; PULSE 106; RESP 19; TEMP 36.9; O2SAT 97
== END 2025-02-12 15:40 | disposition short-term general hospital (02) ==
LOC: SERX 15:39
PROVIDERS: Nurse Practitioner Family; Emergency Provider Family Medicine; PCP Family Medicine
DX: I61.9 Nontraumatic intracerebral hemorrhage, unspecified (principal); I10 Essential (primary) hypertension; I48.20 Chronic atrial fibrillation, unspecified; Z79.01 Long term (current) use of anticoagulants; Z75.1 Person awaiting admission to adequate facility elsewhere
CPT/HCPCS: 36415; 51702; 70450; 70496; 70498; 71045; 80053; 80307; 81001; 83735; 84484; 85025; 85610; 85730; 93005; 96365; 96372; 99291; 99292; A4216; A4314; A4649; J1953; J2060; J7050; J7168; Q9967